=== PATIENT | female | born 1990 ===

== ENCOUNTER 2017-12-04 22:50 | Emergency (ER) | payer SELFPAY ==
[2017-12-04 23:09] VITALS: BP 129/82; PULSE 79; RESP 20; TEMP 98.6; O2SAT 100
--- NOTE | 2017-12-04 23:17 | ED PDOC ---
HPI: Allergic Reaction Time Seen by Provider: 12/04/17 23:10 Chief Complaint (Nursing): Allergic Reaction Chief Complaint (Provider): Allergic reaction History Per: Patient Additional Complaint(s): 27 yo female, no PMH, presents to ED with C/O redness/swelling to right eye area since this morning - patient thinks she may have been bit by a bug. Past Medical History Reviewed: Nursing Documentation, Vital Signs Vital Signs: Last Vital Signs Temp 98.6 F 12/04/17 23:07 Pulse 79 12/04/17 23:07 Resp 20 12/04/17 23:07 BP 129/82 12/04/17 23:07 Pulse Ox 100 12/04/17 23:07 - Medical History PMH: No Chronic Diseases - Surgical History Surgical History: No Surg Hx - Family History Family History: States: No Known Family Hx - Living Arrangements Living Arrangements: With Family - Social History Current smoker - smoking cessation education provided: No Alcohol: Social Drugs: Denies - Allergies Allergies/Adverse Reactions: Allergies Allergy/AdvReac Type Severity Reaction Status Date / Time No Known Allergies Allergy Verified 12/04/17 23:07 Review of Systems ROS Statement: Except As Marked, All Systems Reviewed And Found Negative Eyes: Positive for: Eyelid Inflammation, Redness Physical Exam - Reviewed Nursing Documentation Reviewed: Yes Vital Signs Reviewed: Yes - Physical Exam Appears: Positive for: Well, Non-toxic, No Acute Distress Head Exam: Positive for: ATRAUMATIC, NORMAL INSPECTION, NORMOCEPHALIC Skin: Positive for: Normal Color, Warm, DRY Eye Exam: Positive for: EOMI, PERRL, Periorbital swelling (and erythema, extending to eyebrow where papule is noted. ) ENT: Positive for: Normal ENT Inspection Neck: Positive for: Normal, Painless ROM Cardiovascular/Chest: Positive for: Regular Rate, Rhythm Respiratory: Positive for: CNT, Normal Breath Sounds Gastrointestinal/Abdominal: Positive for: Normal Exam, Soft Back: Positive for: Normal Inspection Extremity: Positive for: Normal ROM Neurologic/Psych: Positive for: Alert, Oriented - ECG O2 Sat by Pulse Oximetry: 100 - Progress ED Course And Treament: pt medicated with prednisone and benadryl PO Pt educated on signs and symptoms of orbital cellulites and advised to return to ED if at anytime condition worsens Disposition - Clinical Impression Clinical Impression: Allergic reaction - Patient ED Disposition Is Patient to be Admitted: No - Disposition Disposition: Routine/Home Disposition Time: 23:18 Condition: STABLE - POA Present On Arrival: None
== END 2017-12-04 23:47 | disposition home or self-care (01) ==
LOC: H.ER 22:50
DX: T78.40XA Allergy, unspecified, initial encounter (principal)